=== PATIENT | male | born 1970 | race Caucasian/White ===

== ENCOUNTER 2019-10-19 17:13 | Inpatient (IN) ==
[2019-10-20 07:04] LABS: Basophils # 0.1 K/mcL (0.0-0.2); Basophils % 0.6 %; Eosinophils # 0.1 K/mcL (0.0-0.6); Hemoglobin 11.1 g/dL (12.9-16.9); Immature Granulocytes % 0.6 % (0-4); Lymphocytes # 1.4 K/mcL (0.6-4.6); Lymphocytes % 17.8 %; Mean Corpuscular HGB Conc 33.6 g/dL (31.6-35.5); Mean Corpuscular Hemoglobin 31.6 pg (28.0-33.3); Mean Platelet Volume 10.5 fL (9.4-12.4); Monocytes # 1.3 K/mcL (0.0-1.3); Monocytes % 15.9 %; Neutrophils # 5.1 K/mcL (1.6-8.9); Platelet Count 190 K/mcL (140-400); Red Blood Count 3.51 M/mcL (4.19-5.50); Red Cell Distribution Width 12.8 % (11.5-14.5); Segmented Neutrophils % 64.1 %; White Blood Count 7.9 K/mcL (4.3-11.1)
[2019-10-20 07:33] LABS: BUN/Creatinine Ratio 14 (6-26); Blood Urea Nitrogen 7 mg/dL (6-20); Calcium 8.6 mg/dL (8.6-10.3); Carbon Dioxide 26 mEq/L (23-29); Chloride 109 mEq/L (98-107); Glucose 101 mg/dL (70-105); Osmolality,Calculated 288 (280-300); Potassium 3.6 mEq/L (3.5-5.1); Sodium 140 mEq/L (136-145); eGFR For African Americans > 60 (> 60); eGFR For Non-African Americans > 60 (> 60)
[2019-10-20] MEDS ORDERED: Methyl Salicylate/Menthol 57 APPL/57 GM TUBE TP PRN (13:37)
[2019-10-20] MEDS ORDERED: *HR* LORazepam 1 MG TABLET PO PRN (15:58)
[2019-10-20] MEDS ORDERED: Ipratropium/Albuterol Neb 3 ML IH PRN (15:58)
[2019-10-20] MEDS ORDERED: *HR* HYDROcodone/Acet 5/325 mg TABLET PO PRN (15:58)
[2019-10-20] MEDS ORDERED: Ondansetron ODT 4 MG TAB.RAPDIS SL PRN (16:09)
[2019-10-20] MEDS ORDERED: Sennosides/Docusate Sodium TABLET PO PRN (16:09)
[2019-10-20] MEDS: Nicotine 14 MG PATCH.TD24 TD SCH (17:33)
[2019-10-21] MEDS: *HR* Enoxaparin 40 MG/0.4 ML SYRINGE SQ SCH (05:22)
[2019-10-21] MEDS: Nicotine 14 MG PATCH.TD24 TD SCH ×2 (09:06→09:08)
[2019-10-22] MEDS: *HR* Enoxaparin 40 MG/0.4 ML SYRINGE SQ SCH (05:22)
[2019-10-22] MEDS: Nicotine 14 MG PATCH.TD24 TD SCH (08:19)
[2019-10-23] MEDS: *HR* Enoxaparin 40 MG/0.4 ML SYRINGE SQ SCH (05:26)
[2019-10-23] MEDS: Nicotine 14 MG PATCH.TD24 TD SCH (07:31)
[2019-10-24] MEDS: *HR* Enoxaparin 40 MG/0.4 ML SYRINGE SQ SCH (05:24)
[2019-10-24] MEDS: Nicotine 14 MG PATCH.TD24 TD SCH (07:48)
[2019-10-25] MEDS: *HR* Enoxaparin 40 MG/0.4 ML SYRINGE SQ SCH (06:40)
[2019-10-25 08:03] VITALS: BP 103/56
[2019-10-25] MEDS: Nicotine 14 MG PATCH.TD24 TD SCH (08:46)
== END 2019-10-25 13:00 | disposition home or self-care (01) | DRG 561 ==
LOC: INPPIK 17:52
PROVIDERS: ADMIT Family Medicine; ATTEND Family Medicine